=== PATIENT | male | born 1990 | race Caucasian/White ===

== ENCOUNTER 2017-06-30 15:44 | Outpatient (CLI) | payer OTHER ==
[2017-06-30] MEDS ORDERED: IOPAMIDOL-300 50 ML VIAL ONE (15:58)
[2017-06-30] MEDS ORDERED: IOPAMIDOL-300 100 ML VIAL ONE (15:58)
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
--- NOTE | 2017-06-30 16:17 | XRAY Preliminary Report ---
Exam: XR FOREARM RT IMPRESSION: Normal forearm radiography. [facility] SITE ID: [id number]
[2017-06-30] MEDS ORDERED: IOPAMIDOL-300 50 ML VIAL PO ONE (18:24)
[2017-06-30] MEDS ORDERED: IOPAMIDOL-300 100 ML VIAL IVP ONE (18:25)
--- NOTE | 2017-06-30 18:52 | CT Preliminary Report ---
Exam: CT CHEST W/ IMPRESSION: 1. Presumed soft tissue contusion involving the superficial tissues of the the mid to lower right ant erior chest wall. 2. Trace right pleural effusion of uncertain etiology. 3. Otherwise, no acute intrathoracic abnormality. 4. Please refer to severely dictated CT of abdomen and pelvis for associated findings. [facility] SITE ID: [id number]
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
--- NOTE | 2017-06-30 19:06 | CT Preliminary Report ---
Exam: CT ABDOMEN/PELVIS W/ IMPRESSION: 1. No evidence of acute or traumatic intra-abdominal or pelvic abnormality. 2. Mild splenomegaly of uncertain etiology and clinical significance. [facility] The call report notification system was initiated by Dr. Richie Tena at 18:55 hrs on 06/30/17. The above findings including chest findings were discussed with Dr. Griffin by Dr. Richie Tena at 19:04 hrs on 06/30/17. SITE ID: [id number]
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
== END 2017-06-30 15:45 | disposition home or self-care (01) ==
LOC: DI 15:44
PROVIDERS: ATTEND Internal Medicine
DX: S29.9XXA Unspecified injury of thorax, initial encounter (principal); S39.91XA Unspecified injury of abdomen, initial encounter; S59.919A Unspecified injury of unspecified forearm, initial encounter; J90 Pleural effusion, not elsewhere classified; R16.1 Splenomegaly, not elsewhere classified
CPT/HCPCS: 71260; 73090; 74177; Q9967

== ENCOUNTER 2021-01-25 12:21 | Outpatient (CLI) | payer OTHER | END 2021-01-25 12:22 | disposition home or self-care (01) | LOC: COV 12:21 | PROVIDERS: ATTEND Family Medicine | DX: Z20.822 Contact with and (suspected) exposure to COVID-19 (principal) ==